=== PATIENT | male | born 1990 | race Caucasian/White ===

== ENCOUNTER 2016-12-19 07:53 | Emergency (ER) | payer BC ==
[2016-12-19 07:58] VITALS: BP 122/62; PULSE 70; RESP 16; O2SAT 98
--- NOTE | 2016-12-19 08:50 | EDPHY ---
H & P Stated Complaint: r lower wisdom tooth pain/swollen on abx HPI/ROS: Chief complaint: Tooth pain History of present illness: This is a 26-year-old male who presents to the emergency department for tooth pain. Reports pain in his right lower wisdom tooth. He is scheduled in the month have this removed. However over the last 2 days has become increasingly painful. His uncle who is a dentist is started on amoxicillin, 500 mg 3 times daily. He just started taking this. He has been using [id number] ibuprofen but pain persists. He denies other associated signs or symptoms including no fevers, no swelling of the face, mouth or throat. No difficulty opening closing the mouth. No difficulty talking. No difficulty swallowing. No difficulty breathing. - Personal History Current Tetanus/Diphtheria Vaccine: Yes - Medical/Surgical History Hx Asthma: No Hx Chronic Respiratory Disease: No Hx Diabetes: No Hx Cardiac Disease: No Hx Renal Disease: No Hx Cirrhosis: No Hx Alcoholism: No Hx HIV/AIDS: No Hx Splenectomy or Spleen Trauma: No Other PMH: tonsillectomy - Social History Smoking Status: Never smoked - Physical Exam Exam: General: Alert, nontoxic ENT: There is no trismus. Right lower wisdom tooth does appear impacted. Minor surrounding erythema of the gums. No edema. The rest of the mouth and oropharynx is unremarkable. Neck: No adenopathy or palpable lesions Skin: No erythema or edema of the face or neck Constitutional: Initial Vital Signs Temperature (C) 36.4 C 12/19/16 07:56 Heart Rate 70 12/19/16 07:56 Respiratory Rate 16 12/19/16 07:56 Blood Pressure 122/62 H 12/19/16 07:56 O2 Sat (%) 98 12/19/16 07:56 O2 Delivery Mode Room Air Allergies/Adverse Reactions: No Known Allergies Allergy (Unverified 12/19/16 07:55) Home Medications: Medication Instructions Recorded AMOXICILLIN 12/19/16 oxyCODONE/APAP 5/325 [Percocet 1 tab PO Q6H #10 tab 12/19/16 5/325 (*)] Medical Decision Making ED Course/Re-evaluation: Patient seen under the supervision of my primary supervising physician Dr. Renate Kraus. Patient presents to the emergency department for tooth pain. I am concerned for a periodontal infection. He is on amoxicillin. We have discussed changing this to a stronger antibiotic but as he is just started taking it he would like to give it some time to work. We have discussed pain management. He has been given referral information for local dentists. Return precautions are given. Patient voiced understanding and agreement with plan. Differential Diagnosis: Included but not limited to dental pain from impaction of tooth, dental emelina, periodontal abscess, Departure - Departure Disposition: Home, Routine, Self-Care Clinical Impression: Periodontal abscess Condition: Good Instructions: Dental Abscess (ED) Additional Instructions: Follow-up with a dentist this week for recheck In regards to pain control see the following: Use topical numbing medications such as Orajel clove oil Use ibuprofen [800] mg [3] times a day for the next 2-3 days for pain In addition You have been prescribed Percocet for pain. Percocet contains Tylenol, do not take extra Tylenol/acetaminophen/Apap with it. It is sedating. If symptoms worsen or new symptoms develop return to the emergency room for recheck Referrals: NONE *PRIMARY CARE P,. [Primary Care Provider] - As per Instructions [facility] [Outside] - As per Instructions [facility] [Outside] - As per Instructions Dental [facility] [Outside] - As per Instructions Dental [facility] [Outside] - As per Instructions Dental [facility] [Outside] - As per Instructions Prescriptions: oxyCODONE/APAP 5/325 [Percocet 5/325 (*)] 1 tab PO Q6H #10 tab
[2016-12-19 08:59] VITALS: TEMP 98.4
== END 2016-12-19 08:59 | disposition home or self-care (01) ==
DX: K04.7 Periapical abscess without sinus (principal)

== ENCOUNTER 2017-06-13 19:30 | Emergency (ER) | payer SELFPAY ==
--- NOTE | 2017-06-13 19:39 | EDPHY ---
H & P Time Seen by Provider: 06/13/17 19:39 HPI/ROS: HPI CHIEF COMPLAINT: Nausea, vomiting, diarrhea, chills, fever HISTORY OF PRESENT ILLNESS: Patient otherwise healthy 27-year-old male, no significant medical history does not take any daily medications he presents emergency room by private vehicle with nausea vomiting and diarrhea as well as fever chills and global weakness. Distally reports a frontal throbbing headache. Patient states that he traveled to [place] and on Tuesday he started feel bad. States he had chills, global weakness, diarrhea that he describes greenish, no blood, and then multiple episodes of nonbilious nonbloody vomiting. Denies any abdominal pain. Today he laid around and felt very warm. States he developed a fever on Tuesday. States he felt fine Tuesday. Flew back tonight states on Tuesday/Tuesday morning. He denies any neck pain or neck stiffness. It is not a global headache. The headache is located front region throbbing. He is not anything to eat or drink. He presents emergency room appearing nontoxic but febrile and dehydrated. Denies rash. Denies urinary symptoms, denies productive cough. Past Medical History: No medical history Past Surgical History: No significant surgical history Social History: Denies drugs alcohol tobacco. Family History: Noncontributory ROS REVIEW OF SYSTEMS: A comprehensive 10 point review of systems is otherwise negative aside from elements mentioned in the history of present illness. Exam Constitutional appears nontoxic however dehydrated triage nursing summary reviewed, vital signs reviewed, awake/alert. Eyes normal conjunctivae and sclera, EOMI, PERRLA. HENT normal inspection, atraumatic, dry mucus membranes, no epistaxis, neck supple/ no meningismus, no raccoon eyes. Respiratory clear to auscultation bilaterally, normal breath sounds, no respiratory distress, no wheezing. Cardiovascular rate normal, regular rhythm, no murmur, no edema, distal pulses normal. Gastrointestinal soft, non-tender, no rebound, no guarding, normal bowel sounds, no distension, no pulsatile mass. Genitourinary no CVA tenderness. Musculoskeletal no midline vertebral tenderness, full range of motion, no calf swelling, no tenderness of extremities, no meningismus, good pulses, neurovascularly intact. Skin pink, warm, & dry, no rash, skin atraumatic. Neurologic awake, alert and oriented x 3, AAOx3, moves all 4 extremities equally, motor intact, sensory intact, CN II-XII intact, normal cerebellar, normal vision, normal speech. Psychiatric normal mood/affect. Heme/Lymph/Immune no lymphadenopathy. Differential Diagnosis: Includes but is not limited to in a particular order acute dehydration, electrolyte disturbance, viral syndrome, bacteremia, sepsis, pneumonia, GI illness, travel diarrhea,meningitis Medical Decision Making: Here in emergency room the patient appears well nontoxic does not have stiff neck and no meningeal signs on exam however appears dehydrated in the setting of fever, nausea vomiting and diarrhea most likely viral, will give acute febrile control here with Tylenol Motrin, IV fluids, nausea medicine, blood work and re-evaluate. Re-evaluation: 2115: Patient re-evaluated. Vital signs improved however he is reporting to me that his headache is worse. It is frontal and throbbing. No neck pain. He does have photophobia phonophobia. No neck stiffness. Fever has improved. Blood work has been reviewed he is dry clinically on exam additionally his creatinine is elevated 1.8. He has received 2 L of fluid here will repeat his chemistry panel additionally will give him 3rd L fluid. Due the headache not improving I will give him IV pain medicine additionally CT head without contrast. Re-evaluate. CT head without contrast called to me by Dr. Gaffney. Negative for acute bleed or tumor. No evidence of acute sinus disease. 2154: Patient reexamine his neurological exam is unremarkable. No stiff neck. No meningeal signs on exam. He is feeling much better after 3rd L fluid. Additionally 1 mg IV Dilaudid. He is not vomiting. His vital signs have improved his fevers down. Clinically there is no evidence of meningitis I do not feel he needs a spinal tap. Most likely patient had nausea vomiting and diarrhea from a viral illness from traveling, this led to dehydration and elevated creatinine which did improve after 2 L of fluid. Which then caused him to have a frontal throbbing headache. Blood work has been reviewed as well as CT scan, negative influenza, no infection a urine, he has no pulmonary symptoms, no stiff neck or meningeal signs. He is improving after 3 L of fluid. He would like to go home. I discussed that he should drink lots of fluids over the next 36-72 hours. Stay well-hydrated. Additionally take Tylenol for fever control. Stay away from ibuprofen or large doses due to elevated creatinine. He should take it easy. He understands this Additionally he understands return emergency room if develops high fever, worsening headache, vomiting or not feeling well [place] diet over the next 36 hr. Lots of fluids. And return precautions discussed with him he understands. 2221: Patient doing much better. eating/drinking. Nad. Feels much better. Looks well. Return Precations discussed. Source: Patient - Medical/Surgical History Hx Asthma: No Hx Chronic Respiratory Disease: No Hx Diabetes: No Hx Cardiac Disease: No Hx Renal Disease: No Hx Cirrhosis: No Hx Alcoholism: No Hx HIV/AIDS: No Hx Splenectomy or Spleen Trauma: No Other PMH: tonsillectomy - Social History Smoking Status: Never smoked Constitutional: Initial Vital Signs Temperature (C) 38.6 C H 06/13/17 19:43 Heart Rate 80 06/13/17 19:43 Respiratory Rate 16 06/13/17 19:43 Blood Pressure 126/61 H 06/13/17 19:43 O2 Sat (%) 94 06/13/17 19:43 O2 Delivery Mode Room Air O2 (L/minute) 2 Allergies/Adverse Reactions: No Known Allergies Allergy (Unverified 06/13/17 19:42) Home Medications: Medication Instructions Recorded Acet/Caffeine/Buta Fioricet 1 each PO Q6 #10 tab 06/13/17 [Fioricet (*)] Ondansetron HCl [Zofran] 4 mg PO Q4-6PRN PRN #10 tablet 06/13/17 Medical Decision Making - Diagnostics Imaging Results: Imaging Impressions Head CT 06/13/17 21:15 Impression: 1. Normal brain. No intracranial hemorrhage or mass. 2. Clear sinuses. No frontal sinus disease. Findings discussed with Emergency Department physician, Mio Winters M.D., on June 13, 2017 at 2138. - Data Points Laboratory Results: Laboratory Results 06/13/17 19:50 06/13/17 21:23 06/13/17 06/13/17 06/13/17 21:40 21:23 20:08 WBC RBC Hgb Hct MCV MCH MCHC RDW Plt Count MPV Neut % (Auto) Lymph % (Auto) Bibb % (Auto) Eos % (Auto) Baso % (Auto) Nucleat RBC Rel Count Absolute Neuts (auto) Absolute Lymphs (auto) Absolute Monos (auto) Absolute Eos (auto) Absolute Basos (auto) Absolute Nucleated RBC Immature Gran % Immature Gran # VBG Lactic Acid Sodium 137 mEq/L mEq/L (135-145) Potassium 3.8 mEq/L mEq/L (3.5-5.2) Chloride 104 mEq/L mEq/L (97-110) Carbon Dioxide 23 mEq/l mEq/l (22-31) Anion Gap 10 mEq/L mEq/L (8-16) BUN 14 mg/dL mg/dL (7-23) Creatinine 1.6 mg/dL H mg/dL (0.7-1.3) Estimated GFR 53 Glucose 96 mg/dL mg/dL (70-100) Calcium 8.3 mg/dL L mg/dL (8.5-10.4) Total Bilirubin Conjugated Bilirubin Unconjugated Bilirubin AST ALT Alkaline Phosphatase Creatine Kinase Total Protein Albumin Lipase Urine Color YELLOW Urine Appearance CLEAR Urine pH 6.0 (5.0-7.5) Ur Specific [place] 1.010 (1.002-1.030) Urine Protein NEGATIVE (NEGATIVE) Urine Ketones NEGATIVE (NEGATIVE) Urine Blood NEGATIVE (NEGATIVE) Urine Nitrate NEGATIVE (NEGATIVE) Urine Bilirubin NEGATIVE (NEGATIVE) Urine Urobilinogen 0.2 EU EU (0.2-1.0) Ur Leukocyte Esterase NEGATIVE (NEGATIVE) Urine Glucose NEGATIVE (NEGATIVE) Nasal Influenza A PCR Nasal Influenza B PCR Influenza A,B Rapid NEGATIVE FOR FLU (NEGATIVE) 06/13/17 06/13/17 06/13/17 20:08 19:50 19:50 WBC 7.91 10^3/uL 10^3/uL (3.80-9.50) RBC 4.57 10^6/uL 10^6/uL (4.40-6.38) Hgb 13.8 g/dL g/dL (13.7-17.5) Hct 39.9 % L % (40.0-51.0) MCV 87.3 fL fL (81.5-99.8) MCH 30.2 pg pg (27.9-34.1) MCHC 34.6 g/dL g/dL (32.4-36.7) RDW 12.2 % % (11.5-15.2) Plt Count 202 10^3/uL 10^3/uL (150-400) MPV 10.0 fL fL (8.7-11.7) Neut % (Auto) 76.1 % H % (39.3-74.2) Lymph % (Auto) 15.0 % % (15.0-45.0) Bibb % (Auto) 8.1 % % (4.5-13.0) Eos % (Auto) 0.4 % L % (0.6-7.6) Baso % (Auto) 0.1 % L % (0.3-1.7) Nucleat RBC Rel Count 0.0 % % (0.0-0.2) Absolute Neuts (auto) 6.02 10^3/uL 10^3/uL (1.70-6.50) Absolute Lymphs (auto) 1.19 10^3/uL 10^3/uL (1.00-3.00) Absolute Monos (auto) 0.64 10^3/uL 10^3/uL (0.30-0.80) Absolute Eos (auto) 0.03 10^3/uL 10^3/uL (0.03-0.40) Absolute Basos (auto) 0.01 10^3/uL L 10^3/uL (0.02-0.10) Absolute Nucleated RBC 0.00 10^3/uL 10^3/uL (0-0.01) Immature Gran % 0.3 % % (0.0-1.1) Immature Gran # 0.02 10^3/uL 10^3/uL (0.00-0.10) VBG Lactic Acid Sodium 137 mEq/L mEq/L (135-145) Potassium 3.7 mEq/L mEq/L (3.5-5.2) Chloride 101 mEq/L mEq/L (97-110) Carbon Dioxide 25 mEq/l mEq/l (22-31) Anion Gap 11 mEq/L mEq/L (8-16) BUN 15 mg/dL mg/dL (7-23) Creatinine 1.8 mg/dL H mg/dL (0.7-1.3) Estimated GFR 46 Glucose 106 mg/dL H mg/dL (70-100) Calcium 9.5 mg/dL mg/dL (8.5-10.4) Total Bilirubin 0.8 mg/dL mg/dL (0.1-1.4) Conjugated Bilirubin 0.2 mg/dL mg/dL (0.0-0.5) Unconjugated Bilirubin 0.6 mg/dL mg/dL (0.0-1.1) AST 20 IU/L IU/L (17-59) ALT 28 IU/L IU/L (21-72) Alkaline Phosphatase 44 IU/L IU/L (38-126) Creatine Kinase Total Protein 6.8 g/dL g/dL (6.3-8.2) Albumin 4.0 g/dL g/dL (3.5-5.0) Lipase 50 IU/L IU/L (23-300) Urine Color Urine Appearance Urine pH Ur Specific [place] Urine Protein Urine Ketones Urine Blood Urine Nitrate Urine Bilirubin Urine Urobilinogen Ur Leukocyte Esterase Urine Glucose Nasal Influenza A PCR Cancelled Nasal Influenza B PCR Cancelled Influenza A,B Rapid 06/13/17 06/13/17 19:50 19:00 WBC RBC Hgb Hct MCV MCH MCHC RDW Plt Count MPV Neut % (Auto) Lymph % (Auto) Bibb % (Auto) Eos % (Auto) Baso % (Auto) Nucleat RBC Rel Count Absolute Neuts (auto) Absolute Lymphs (auto) Absolute Monos (auto) Absolute Eos (auto) Absolute Basos (auto) Absolute Nucleated RBC Immature Gran % Immature Gran # VBG Lactic Acid 0.9 mmol/L mmol/L (0.7-2.1) Sodium Potassium Chloride Carbon Dioxide Anion Gap BUN Creatinine Estimated GFR Glucose Calcium Total Bilirubin Conjugated Bilirubin Unconjugated Bilirubin AST ALT Alkaline Phosphatase Creatine Kinase 89 IU/L IU/L (0-224) Total Protein Albumin Lipase Urine Color Urine Appearance Urine pH Ur Specific [place] Urine Protein Urine Ketones Urine Blood Urine Nitrate Urine Bilirubin Urine Urobilinogen Ur Leukocyte Esterase Urine Glucose Nasal Influenza A PCR Nasal Influenza B PCR Influenza A,B Rapid Medications Given: Discontinued Medications Acetaminophen (Tylenol) 1,000 mg PO EDNOW ONE Stop: 06/13/17 19:46 Last Admin: 06/13/17 19:55 Dose: 1,000 mg Hydromorphone HCl (Dilaudid) 1 mg IVP EDNOW ONE Stop: 06/13/17 21:16 Last Admin: 06/13/17 21:25 Dose: 1 mg Sodium Chloride (Ns) 1,000 mls @ 0 mls/hr IV EDNOW ONE; Wide Open PRN Reason: Protocol Stop: 06/13/17 19:45 Last Admin: 06/13/17 19:51 Dose: 1,000 mls Sodium Chloride (Ns) 1,000 mls @ 0 mls/hr IV EDNOW ONE; Wide Open PRN Reason: Protocol Stop: 06/13/17 19:45 Last Admin: 06/13/17 20:45 Dose: 1,000 mls Sodium Chloride (Ns) 1,000 mls @ 0 mls/hr IV ONCE ONE PRN Reason: Wide Open Stop: 06/13/17 21:16 Last Admin: 06/13/17 21:22 Dose: 1,000 mls Ibuprofen (Motrin) 800 mg PO EDNOW ONE Stop: 06/13/17 19:46 Last Admin: 06/13/17 19:55 Dose: 800 mg Ondansetron HCl (Zofran) 4 mg IVP EDNOW ONE Stop: 06/13/17 19:45 Last Admin: 06/13/17 19:55 Dose: 4 mg Departure - Departure Disposition: Home, Routine, Self-Care Clinical Impression: Dehydration Vomiting Qualifiers: Vomiting type: unspecified Vomiting Intractability: non-intractable Nausea presence: with nausea Qualified Code(s): R11.2 - Nausea with vomiting, unspecified Diarrhea Qualifiers: Diarrhea type: unspecified type Qualified Code(s): R19.7 - Diarrhea, unspecified Headache Qualifiers: Headache type: unspecified Headache chronicity pattern: acute headache Intractability: not intractable Qualified Code(s): R51 - Headache Condition: Good Instructions: Dehydration (ED), Acute Headache (ED), Acute Nausea and Vomiting (ED) Additional Instructions: 1. Drink lots of fluids over the next 36-72 hours. 2. Stay well-hydrated. 3. Fever control with tylenol, do not exceed 3000mg in a 24 hour period. 4. Rest. 5. Return emergency room if develops worsening fever worsening headache vomiting or not feeling well. Referrals: NONE *PRIMARY CARE P,. [Primary Care Provider] - As per Instructions Prescriptions: Acet/Caffeine/Buta Fioricet [Fioricet (*)] 1 each PO Q6 #10 tab Ondansetron HCl [Zofran] 4 mg PO Q4-6PRN PRN #10 tablet PRN Reason: Nausea/Vomiting, Use 1st
[2017-06-13] MEDS ORDERED: ONDANSETRON 4 MG/2 ML VIAL IVP ONE (19:44)
[2017-06-13] MEDS ORDERED: NS 1,000 ML IV ONE ×3 (19:44→21:15)
[2017-06-13] MEDS ORDERED: IBUPROFEN 800 MG TAB PO ONE (19:45)
[2017-06-13] MEDS ORDERED: ACETAMINOPHEN 500 MG TAB PO ONE (19:45)
[2017-06-13] MEDS ORDERED: ONDANSETRON 4 MG/2 ML VIAL ONE (19:52)
[2017-06-13 20:02] LABS: PLATELET COUNT 202 10^3/uL (150-400)
[2017-06-13] MEDS ORDERED: HYDROmorphONE/DILAUDID 2 MG/ML INJ IVP ONE (21:15)
[2017-06-13] MEDS ORDERED: HYDROCOD/APAP 5/325 PREPACK#6 BTL TAKEHOME ONE (22:00)
[2017-06-13] MEDS ORDERED: ONDANSETRON 4MG PREPACK#2 BTL TAKEHOME ONE (22:00)
[2017-06-13] MEDS ORDERED: OXYCODONE/APAP 5/325MG PREPACK#4 BTL TAKEHOME ONE (22:22)
[2017-06-13 22:39] VITALS: BP 107/55
== END 2017-06-13 22:35 | disposition home or self-care (01) ==
LOC: CED 19:30
DX: R11.2 Nausea with vomiting, unspecified (principal); E86.0 Dehydration; R19.7 Diarrhea, unspecified; R51 Headache; E86.9 Volume depletion, unspecified
CPT/HCPCS: 70450-PO; 80048-PO; 80076-PO; 81003-PO; 82550-PO; 83605-PO; 83690-PO; 85025-PO; 87400-PO; 96374; J1170; J2405

== ENCOUNTER 2017-06-14 21:40 | Emergency (ER) | payer BC ==
[2017-06-14 22:01] VITALS: BP 125/71
[2017-06-14] MEDS ORDERED: KETOROLAC 30 MG/1 ML SDV IVP ONE (22:10)
[2017-06-14] MEDS ORDERED: NS 1,000 ML IV ONE (22:10)
[2017-06-14] MEDS ORDERED: DEXAMETHASONE 10 MG/ML VIAL IVP ONE (22:10)
[2017-06-14] MEDS ORDERED: METOCLOPRAMIDE 10 MG/2 ML VIAL IVP ONE (22:10)
--- NOTE | 2017-06-14 22:15 | EDPHY ---
H & P Stated Complaint: [place], Nausea, fever. Time Seen by Provider: 06/14/17 21:56 HPI/ROS: CHIEF COMPLAINT: Headache HISTORY OF PRESENT ILLNESS: Patient is a 27-year-old man who was seen here yesterday for primarily GI symptoms and fever. He just returned from traveling and had diarrhea and nausea and vomiting as well as a fever of 102. His symptoms improved with hydration however during his stay here he developed a worsening headache. He had a negative CT scan. He did not have meningismus and declined lumbar puncture. Today we received blood culture results which were positive for gram-positive Staph clusters. We called to notify him of this and he disclose that he is still having headache and returned to the ER for further evaluation. In the meantime his cultures have come back coagulase negative which is likely skin khalif contamination. He is no longer having a fever today. His GI symptoms have resolved. He still has a moderate headache. No confusion. Still no sign neck stiffness or pain. No back pain. No lethargy. REVIEW OF SYSTEMS: Constitutional: denies: chills, fever, recent illness, recent injury EENTM: denies: blurred vision, double vision, nose congestion Respiratory: denies: cough, shortness of breath Cardiac: denies: chest pain, irregular heart rate, lightheadedness, palpitations Gastrointestinal/Abdominal: denies: abdominal pain, diarrhea, nausea, vomiting, blood streaked stools Genitourinary: denies: dysuria, frequency, hematuria, pain Musculoskeletal: denies: joint pain, muscle pain Skin: denies: lesions, rash, jaundice, bruising Neurological: See HPI denies: numbness, paresthesia, tingling, dizziness, weakness Hematologic/Lymphatic: denies: blood clots, easy bleeding, easy bruising Immunologic/allergic: denies: HIV/AIDS, transplant EXAM: GENERAL: Well-appearing, well-nourished and in no acute distress. HEAD: Atraumatic, normocephalic. EYES: Pupils equal round and reactive to light, extraocular movements intact, sclera anicteric, conjunctiva are normal. ENT: TMs normal, nares patent, oropharynx clear without exudates. Slightly dry mucous membranes. NECK: Normal range of motion, supple without lymphadenopathy or JVD. No meningismus, negative Kernig's and Brudzinski LUNGS: Breath sounds clear to auscultation bilaterally and equal. No wheezes rales or rhonchi. HEART: Regular rate and rhythm without murmurs, rubs or gallops. ABDOMEN: Soft, nontender, normoactive bowel sounds. No guarding, no rebound. No masses appreciated. BACK: No CVA tenderness, no spinal tenderness, step-offs or deformities EXTREMITIES: Normal range of motion, no pitting or edema. No clubbing or cyanosis. NEUROLOGICAL: Cranial nerves II through XII grossly intact. Normal speech, normal gait. 5/5 strength, normal movement in all extremities, normal sensation PSYCH: Normal mood, normal affect. SKIN: Warm, dry, normal turgor, no visible rashes or lesions. Source: Patient Exam Limitations: No limitations - Personal History Current Tetanus/Diphtheria Vaccine: Yes Current Tetanus Diphtheria and Acellular Pertussis (TDAP): Yes - Medical/Surgical History Hx Asthma: No Hx Chronic Respiratory Disease: No Hx Diabetes: No Hx Cardiac Disease: No Hx Renal Disease: No Hx Cirrhosis: No Hx Alcoholism: No Hx HIV/AIDS: No Hx Splenectomy or Spleen Trauma: No Other PMH: tonsillectomy - Family History Significant Family History: No pertinent family hx - Social History Smoking Status: Never smoked Alcohol Use: Sober Drug Use: None Constitutional: Initial Vital Signs Temperature (C) 37.4 C 06/14/17 21:57 Heart Rate 74 06/14/17 21:57 Respiratory Rate 16 06/14/17 21:57 Blood Pressure 125/71 H 06/14/17 21:57 O2 Sat (%) 92 06/14/17 21:57 O2 Delivery Mode Room Air Allergies/Adverse Reactions: No Known Allergies Allergy (Unverified 06/13/17 19:42) Home Medications: Medication Instructions Recorded Acet/Caffeine/Buta Fioricet 1 each PO Q6 #10 tab 06/13/17 [Fioricet (*)] Ondansetron HCl [Zofran] 4 mg PO Q4-6PRN PRN #10 tablet 06/13/17 Medical Decision Making ED Course/Re-evaluation: The patient requests hydration and headache medication. We discussed possibility of meningitis although I think it is low likelihood considering his lack of neck pain or stiffness and lack of fever today. I did offer however to perform a lumbar puncture to confirm and he is declining. We discussed symptoms to watch for. At this point I will treat for migraines and observed. At 10:20 after we discussed our plan patient disclosed to the nursing staff that he does not have IV fluids or medications and is currently not feeling bad but the only reason he came here is because called him earlier about his positive blood culture. Now that that is likely just a contaminant and he is feeling better he would prefer to go home. He is concerned about cost. We gave strict return precautions. Differential Diagnosis: Partial list of the Differential diagnosis considered include but were not limited to; tension headache, migraine headache, dehydration, gastroenteritis and although unlikely based on the history and physical exam, I also considered meningitis, sepsis,. I discussed these differential diagnoses and the plan with the patient as well as the usual and expected course. The patient understands that the diagnosis is provisional and that in medicine we are not always correct and that further workup is often warranted. Usual and customary warnings were given. All of the patient's questions were answered. The patient was instructed to return to the emergency department should the symptoms at all worsen or return, otherwise to followup with the physician as we discussed. - Data Points Medications Given: Discontinued Medications Dexamethasone (Decadron Injection) 10 mg IVP EDNOW ONE Stop: 06/14/17 22:11 Last Admin: 06/14/17 22:21 Dose: Not Given Diphenhydramine HCl (Benadryl Injection) 25 mg IVP EDNOW ONE Stop: 06/14/17 22:11 Last Admin: 06/14/17 22:21 Dose: Not Given Sodium Chloride (Ns) 1,000 mls @ 0 mls/hr IV ONCE ONE; Wide Open PRN Reason: Protocol Stop: 06/14/17 22:11 Last Admin: 06/14/17 22:21 Dose: Not Given Ketorolac Tromethamine (Toradol) 15 mg IVP EDNOW ONE Stop: 06/14/17 22:11 Last Admin: 06/14/17 22:21 Dose: Not Given Metoclopramide HCl (Reglan Injection) 10 mg IVP EDNOW ONE Stop: 06/14/17 22:11 Last Admin: 06/14/17 22:21 Dose: Not Given Departure - Departure Disposition: Home, Routine, Self-Care Clinical Impression: Headache Qualifiers: Headache type: unspecified Headache chronicity pattern: acute headache Intractability: not intractable Qualified Code(s): R51 - Headache Condition: Fair Instructions: Acute Headache (ED) Referrals: NONE *PRIMARY CARE P,. [Primary Care Provider] - As per Instructions Marjan Aguilar MD [Medical Doctor] - 2-3 days, call for appt.
== END 2017-06-14 22:35 | disposition home or self-care (01) ==
LOC: CED 21:40
DX: R51 Headache (principal)
CPT/HCPCS: J1100; J1200; J1885; J2765